=== PATIENT | male | born 1945 | race Caucasian/White ===

== ENCOUNTER 2020-06-05 20:17 | Emergency (ER) | payer OTHER ==
[2020-06-05 20:33] VITALS: BP 126/70; PULSE 85; TEMP 98.1; BMI 29.7
[2020-06-05] MEDS ORDERED: ACETAMINOPHEN 500 MG TABLET (FP) PO ONE (21:10)
[2020-06-05] MEDS ORDERED: ACETAMINOPHEN 500 MG TABLET (FP) ONE (21:17)
[2020-06-05 21:39] LABS: BASO % 0.9 % (0-2.0); EOS % 3.3 % (0-4.5); HEMATOCRIT 29.8 % (35.4-49); HEMOGLOBIN 9.9 GM/dl (11.7-16.9); LYMPH % 15.5 % (8-40); MCH 29.6 pg (25.7-33.7); MCHC 33.4 g/dl (32.0-35.9); MEAN CELL VOLUME 88.6 fl (80-96); MEAN PLT VOLUME 8.2 fl (7.5-11.1); NEUT % 75.3 % (42.8-82.8); PLATELET COUNT 252 K/MM3 (134-434); RBC 3.36 M/mm3 (4.00-5.60); RDW 14.2 % (11.9-15.9); WHITE BLOOD COUNT 7.7 K/mm3 (4.0-10.8)
[2020-06-05 21:52] LABS: ALBUMIN 3.1 g/dl (3.4-5.0); BILIRUBIN,TOTAL 0.3 mg/dl (0.2-1); CALCIUM 8.5 mg/dl (8.5-10); CREATININE 2.3 mg/dl (0.55-1.3); TOT PROT 7.4 g/dl (6.4-8.2)
== END 2020-06-05 22:27 | disposition home or self-care (01) ==
LOC: FER 20:17
DX: G62.9 Polyneuropathy, unspecified (principal)
CPT/HCPCS: 36415; 71045-TC-FY; 80053; 85025; 99285-25